=== PATIENT | male | born 1985 | race Caucasian/White ===

== ENCOUNTER 2025-05-05 20:25 | Day surgery (SDC) | payer BC, SELFPAY ==
[2025-05-05 16:46] VITALS: BP 146/88
[2025-05-05] MEDS: ZOFRAN 4 MG IV (17:31)
[2025-05-05] MEDS: DILAUDID 1 MG IV (17:31)
[2025-05-05 17:37] LABS: Hematocrit 44.3 % (39.0-52.0); Hemoglobin 15.1 g/dL (13.0-18.0); Mean Corp Hgb Conc. 34.1 g/dL (33.0-37.0); Mean Corpuscular Volume 86.5 fL (80.0-94.0); Nucleated Red Blood Cells % 0 % (-); Platelet Count 278 10^3/uL (130-400); Red Cell Dist. Width 12.3 % (11.5-14.5)
--- NOTE | 2025-05-05 17:40 | ED.GENMED ---
History of Present Illness
General
Chief Complaint: Abdominal Pain
Source: patient
Exam Limitations: none
Time Seen by Provider: 05/05/25 17:00
Nursing documentation reviewed up to this point in time: agreed with
History of Present Illness
History of Present Illness:
39-year-old male 1 day of abdominal pain right-sided no fever not much of an appetite pressure, no prior episodes no flank pain no dysuria or frequency no prior abdominal surgeries no sick contacts no testicular pain
Past History
Past History
ED Past Medical History: None
ED Past Surgical History: None
Social History
Tobacco: Non-smoker
Alcohol: None
Drug: None
Personal:
Living: with family
Employment: Employed
Review of Systems
Review of Systems
All Other Systems: Not applicable
Constitutional: Denies fever or fatigue
EENT: Reports no symptoms
Respiratory: Reports no symptoms
Cardiac: Denies chest pain
ABD/GI: Reports abdominal pain and anorexia
: Reports no symptoms
Musculoskeletal: Reports no symptoms
Phy Exam
Physical Exam
Physical Exam:
Physical Exam
General: no apparent distress, not acutely ill
Neck: No jaundice
Heart: s1/s2 regular rate and rhythm, no murmur. equal radial pulses.
Lungs: no acute respiratory distress. clear bilaterally
Abdomen: Tender in the right lower abdomen
Neuro: alert and oriented. no focal neurological deficits
Skin: no rash
Psychiatric: well kept. interactive and cooperative
Extremities: no edema.
Course
Orders/Labs/Results
Orders:
Orders
05/05/25 Dinner
Clear Liquid
At Your Request: Full Participation
NPO
Allow oral meds: Yes
Allow clear liquids: No
NPO with Ice Chips: No
05/05/25 17:17
CT Abd/Pel (IV only)-DH only Urgent
Comment:
Reason For Exam: rlq pain
HYDROmorphone [Dilaudid] 1 mg IV NOW STA
Ondansetron Injectable [Zofran] 4 mg IV NOW STA
05/05/25 17:28
Complete Blood Count/With Diff Urgent
Comprehensive Metabolic Panel Urgent
05/05/25 19:20
Urinalysis Reflex To Culture Urgent
Date Specimen was Collected: 05/05/25
Time Specimen was Collected: 19:18
Urine Microscopic Reflex Cult Urgent
05/05/25 19:38
Piperacillin/Tazo 3.375 Gram [Zosyn] 3.375 gram in 50 ml IV NOW
05/05/25 19:45
0.9% Sodium Chloride 1000 ml [Nss] 1,000 ml IV BOLUS
05/05/25 19:46
Admit/Transfer Patient As Directed
Co-Sign Provider:
Level of Care: Observation services
Assign to:: Medical/Surgical
Physician / Group: dr Muñoz
Diagnosis: acute appendicitis
PRN Pain Medication Management As Directed
May give lesser potent ordered pain med per pt: Yes
preference::
Protocol:: Medication orders for pain may be administered in a
manner that supports deferring to patient preference
when the pt is:
- Requesting an ordered lesser potent pain medication.
Least to most potent pain medications are defined
as: acetaminophen < NSAID < tramadol < opioids
(morphine, oxycodone, hydromorphone).
- Requesting a lesser dose of the same medication IF
ORDERED.
- Requesting a less intrusive route of administration
if both routes are prescribed by the provider (PO <
IV).
05/05/25 19:47
Code Status As Directed
Resuscitation Status: Full Code
05/05/25 20:56
0.9% Sodium Chloride 1000 ml [Nss] 1,000 ml IV 140 mls/hr
Acetaminophen [Tylenol] 650 mg PO Q4HPRN PRN
HYDROmorphone [Dilaudid] 0.5 mg IV Q2HPRN PRN
HYDROmorphone [Dilaudid] 1 mg IV Q2HPRN PRN
05/05/25 20:56
Activity As Directed
Activity Level: Out of Bed-Early Mobility
Anti-embolism (LORENA) Hose As Directed
Type: Thigh high
Intake/ Output As Directed
Frequency: Per unit guidelines
Pneumatic Compression Sleeves As Directed
Type: Thigh high
Vital Signs As Directed
Frequency: Per unit guidelines
Rx Incentive Spirometry [RESP] Routine
Frequency: q1h while awake
# of times per hour: 10
DX Deep Vein Thrombosis Video Routine
05/06/25 00:00
Ondansetron Injectable [Zofran] 4 mg IV Q6HPRN PRN
05/06/25 04:00
Piperacillin/Tazo 3.375 Gram [Zosyn] 3.375 gram in 50 ml IV Q6H
05/06/25 06:00
Basic Metabolic Panel IN AM
Complete Blood Count/With Diff IN AM
05/06/25 08:00
Pantoprazole [Protonix] 40 mg PO DAILY
Abnormal Lab Results
05/05/25 05/05/25
17:28 19:20
WBC 14.8 H 10^3/uL
(4.8-10.8)
Abs Immat Gran (auto) 0.1 H 10^3/uL
(0-0.05)
Absolute Neuts (auto) 11.6 H 10^3/uL
(1.4-6.5)
Absolute Monos (auto) 1.5 H 10^3/uL
(0.1-0.6)
Neutrophils % 78.4 H %
(42.2-75.2)
Lymphocytes % 10.5 L %
(20.5-51.1)
Monocytes % 10.1 H %
(1.7-9.3)
Glucose 118 H mg/dl
(70-99)
Total Bilirubin 1.6 H mg/dl
(0.2-1.3)
Ur Occult Blood Reflex 1+ A
(Negative)
Urine Bacteria (Reflex) Few A
(Negative)
Urine Albumin (Reflex) 1+ A
(Neg - Trace)
05/05/25 17:28
05/05/25 17:28
Vital Signs
Initial and Last Documented VS:
Initial Vital Signs
Temp Pulse Resp BP Pulse Ox
98.1 F 111 18 146/88 96
05/05/25 16:46 05/05/25 16:46 05/05/25 16:46 05/05/25 16:46 05/05/25 16:46
Last Documented Vital Signs
Temp Pulse Resp BP Pulse Ox
98.3 F 80 18 122/81 100
05/05/25 21:03 05/05/25 21:03 05/05/25 21:03 05/05/25 21:03 05/05/25 21:03
MDM/Problems Addressed
Differential Diagnosis Includes:
Appendicitis right side diverticulitis UTI nonspecific abdominal pain
MDM/Problems Addressed:
Abdominal
*Radiology
Radiology exam reviewed: radiology read reviewed
*Pulse Oximetry
SaO2: 96
Oxygen Mode of Delivery: Room air
Patient hypoxic: no
*Critical Care Note
Total Time (30-74mins, 75-104mins- exclusive of procedures): Not Applicable
Update Note
Update Note:
Update labs noted CT noted CT report noted message sent to on-call general surgeon will update patient
ED Attending Note
-
Portions of this chart may have been created with voice recognition software.� Occasional wrong word or��sound alike� substitutions may have occurred due to the inherent limitations of voice recognition software.
Discharge Plan
Departure
Patient Disposition: Admit
Date of Disposition: 05/05/25
Time of Disposition: 19:42
Admit to: Med/Surg
Admit to doctor: Bradly
Presentation/result/management discussed w/ accepting MD/DO: TREVOR
Patient with high blood pressure during this ER visit?: No
Condition: Good
Covid-19: Not Applicable
Discharge Problem:
Acute appendicitis
Interventions
Interventions:
*Risk Screen - Suicide Last Done: 05/05/25 21:11
*General Assessment Last Done: 05/05/25 18:48
*Neglect/Abuse Screening Last Done: 05/05/25 16:47
*ED COVID-19 Vaccine History Last Done: 05/05/25 21:11
*ED Influenza Vaccine History Last Done: 05/05/25 18:48
*Nursing Disposition Last Done: 05/05/25 20:57
PG-Zaakgz-Rataryjrtn Assessment Last Done: 05/05/25 18:48
Discharge Date and Time
Discharge Date/Time: 05/05/25 20:58
[2025-05-05 17:47] LABS: ALT (SGPT) 20 U/L (0-50); AST (SGOT) 18 U/L (17-59); Albumin 4.5 g/dl (3.5-5.0); Alkaline Phosphatase 49 U/L (38-126); Blood Urea Nitrogen 12 mg/dl (9-20); Calcium 9.6 mg/dl (8.4-10.2); Carbon Dioxide 26 mmol/L (22-30); Chloride 103 mmol/L (98-107); Glucose 118 mg/dl (70-99); Potassium 4.3 mmol/L (3.5-5.1); Sodium 137 mmol/L (135-145); Total Protein 7.2 g/dl (6.3-8.2); eGFR > 60.00
[2025-05-05 18:00] VITALS: BP 124/77
[2025-05-05 19:43] LABS: Urine Character Clear (Clear)
[2025-05-05 19:47] VITALS: BMI 31.0
[2025-05-05 19:53] LABS: Urine Red Blood Cell 0-2 /HPF (0-2); Urine Squamous Cell 0-2 /LPF (Few); Urine White Cell 0-2 /HPF (0-5)
[2025-05-05] MEDS: NSS 1000 IV ×2 (19:54→21:29)
[2025-05-05] MEDS: ZOSYN 50 IV (19:55)
--- NOTE | 2025-05-05 20:06 | HPS.HSE ---
Addendum entered and electronically signed by Gilbert Muñoz MD 05/06/25 07:27:
Patient seen and examined independently of admitting nurse practitioner. Agree with documented history and physical with additional details noted here.
HPI: 39-year-old male who developed acute onset of abdominal pain about 36 hours ago. It migrated and localized to the right lower quadrant. Some mild nausea but no vomiting. Associated anorexia. His bowels have been moving well last bowel
movement was this morning.
No significant active past medical history other than GERD.
Past surgical history of wisdom tooth extraction and endoscopy
AFVSS
NAD AAO x 3
ABD: soft, nondistended, tenderness to palpation localizing to the right lower quadrant with some voluntary guarding on deep palpation. No rebound or rigidity.
CT abdomen/pelvis personally reviewed and interpreted as well as radiologist report. Dilated/distended appendix measuring just over 1 cm. Associated inflammatory changes and wall thickening. No free fluid. No organized fluid collection. Mild
inflammation towards the base but no phlegmon extending into the cecum or terminal ileum.
Assessment/plan: 39-year-old male presenting with acute appendicitis.
Reviewed with patient treatment options including attempted nonoperative management/antibiotics versus appendectomy. We discussed the risks and benefits of both approaches and patient in agreement to proceed with appendectomy.
Laparoscopic appendectomy was reviewed in detail clued the operative technique, alternative treatment options, benefits and potential risks.
Any of the patient's concerns or questions were fully addressed and informed consent was obtained.
Patient is on the OR schedule today for appendectomy
Continue current supportive care pending availability of an OR
Zosyn
Original Note:
Family Physician
-
Family Physician:
Chief Complaint
-
abd pain
History of Present Illness
39-year-old male with only hx of GERD present to ED with 1 day of abdominal pain right-sided. Initially pain was diffuse. [place] crampy in nature. Did not measure temp- but he did feel feverish and hot with chills. Not much of an appetite. Nausea
without vomiting. No prior episodes no flank pain no dysuria or frequency no prior abdominal surgeries no sick contacts no testicular pain.
ED treatments:
WBC 14.8
[address] abd:IMPRESSION:
Acute appendicitis. No definite evidence to suggest perforation or abscess, though there is a prominent inflammatory reaction.
zosyn started
pain tolerable with dilaudid
Medical History
Past Medical History
Past Medical History: Reports None and GERD
Past Surgical History: Reports Other (wisdom teeth removal, endoscopies)
Social History
Tobacco: Non-smoker
Alcohol: Occasional
Drug: None
Personal:
Living: With Family
Employment: Employed
Family History
Family History: Not pertinent
Allergies / Home Medications
Allergies reflects when Allergies were last updated in [facility].
Home Medications with original date entered in [facility]
Allergy/Medication List:
Nexium ?mg po daily
Review of Systems
-
History Source: Patient and Family
A 12 point ROS was completed and negative except as noted: Yes
Constitutional: Reports Fever (not measured but he felt feverish) and Chills
EENT: Reports No Symptoms
Respiratory: Reports No Symptoms
Cardiac: Reports No Symptoms
Abdomen/GI: Reports Abdominal Pain, Nausea and Anorexia
: Reports No Symptoms
Musculoskeletal: Reports No Symptoms
Skin: Reports No Symptoms
Neurological: Reports No Symptoms
Endocrine: Reports No Symptoms
Hematologic/Lymphatic: Reports No Symptoms
Psych: Reports No Symptoms
Physical Exam
Vital Signs
Vital Signs
Temp Pulse Resp BP Pulse Ox
98.1 F 111 18 146/88 96
05/05/25 16:46 05/05/25 16:46 05/05/25 16:46 05/05/25 16:46 05/05/25 17:42
Physical Exam
General: Well Developed, Well Nourished, No Apparent Distress, Comfortable and Pain (12/14 after dilaudid. 'tolerable level')
HEENT: NormoCephalic, Moist mucous membranes and Atraumatic
Respiratory: Clear
Cardiac: S1/S2 and Regular Rhythm
GI: Soft, Normal Bowel Sounds, Tender (+tender rLQ to palpation and increase tender with movement) and Distended (mildly); No Non Distended
Rectal: Deferred by Provider
Musculoskeletal: No Clubbing and No Cyanosis
Skin: Warm and Dry
Neuro: Awake, Alert, Oriented, AO x 3 and No Motor Deficits
Psych: Calm
Laboratory Results
-
05/05/25 17:28
05/05/25 17:28
Laboratory Results
Total Bilirubin 1.6 mg/dl (0.2-1.3) H 05/05/25 17:28
AST 18 U/L (17-59) 05/05/25 17:28
ALT 20 U/L (0-50) 05/05/25 17:28
Alkaline Phosphatase 49 U/L (38-126) 05/05/25 17:28
Impression/Plan
-
IMPRESSION:
39 yo male present to ED with abd pain RLQ since last evening. [place] feverish and chills. +anorexia CT abd c/w acute appendicitis w/o perforation
PLAN:
Admit to service of Dr Muñoz
Med surg obs
#acute appendicitis
-npo x meds after midnight. Clear liquids ok for tonight.
-pain control: tylenol, dilaudid
-cont zosyn iv q6
-cbc bmp in am
-NSS @80
DVT proph: scd for now
Full code
--- NOTE | 2025-05-05 20:50 | PTCARENOTE ---
Pt arrived to [address] [place] [address] @ 2049 from ED. Pt ambulated to bed w/o difficulty. Pt AAOx3, VSS. Admission assessment complete. IVF initiated per order. Pt c/o 11/13 pain, prn medication given, see MAR. Reviewed plan of care with pt and spouse at beside, all
questions answered. Pt oriented to room, call esqueda within reach, bed locked and in lowest position. Care onoing.
[2025-05-05 21:03] VITALS: BP 122/81
[2025-05-05] MEDS: DILAUDID 0.5 MG IV (21:26)
[2025-05-05] MEDS: MELATONIN 5 MG PO (21:36)
[2025-05-05 21:41] VITALS: BMI 30.9
[2025-05-05 23:00] VITALS: BP 124/79
[2025-05-05] MEDS: TUMS CHEWABLE TABLET 400 MG PO (23:50)
[2025-05-06] VITALS (10 sets, daily range): BP systolic 115–148; BP diastolic 59–88
[2025-05-06] MEDS: ZOSYN 50 IV ×4 (03:01→21:25)
[2025-05-06] MEDS: NSS 1000 IV ×3 (04:02→23:18)
[2025-05-06 07:50] LABS: Blood Urea Nitrogen 11 mg/dl (9-20); Calcium 9.3 mg/dl (8.4-10.2); Carbon Dioxide 29 mmol/L (22-30); Chloride 101 mmol/L (98-107); Estimated Creatinine Clearance 111 ml/min; Glucose 96 mg/dl (70-99); Potassium 4.3 mmol/L (3.5-5.1); Sodium 135 mmol/L (135-145); eGFR > 60.00
[2025-05-06 08:12] LABS: Hematocrit 41.4 % (39.0-52.0); Hemoglobin 13.9 g/dL (13.0-18.0); Mean Corp Hgb Conc. 33.6 g/dL (33.0-37.0); Mean Corpuscular Volume 91.0 fL (80.0-94.0); Nucleated Red Blood Cells % 0 % (-); Platelet Count 248 10^3/uL (130-400); Red Cell Dist. Width 12.3 % (11.5-14.5)
[2025-05-06] MEDS: PROTONIX IV 40 MG IV (08:52)
[2025-05-06] MEDS: NSS (PRESERVATIVE FREE) 10 ML IV (08:52)
--- NOTE | 2025-05-06 13:42 | W.SUR.PREOP ---
Pre-Operative Surgical Note
-
I have examined this patient prior to the performance of the scheduled procedure.
The patient's condition is unchanged from the time of the current History and
Physical and the patient is able to undergo the scheduled procedure.
--- NOTE | 2025-05-06 14:19 | CM ---
Patient out of room when CM attempted to see patient. Will return to complete assessment
--- NOTE | 2025-05-06 15:51 | CM ---
Patient out of room to testing. CM called and spoke with patient . Patient lives with her in a 2 story home with no past need for VN or SNF. Patient has no DME at home. Patient is OBS and CM reviewed form with patient , copy left in room.
Patient PCP is Dr. Murdock and he uses the [facility] in [place]. Patient is here to visit patient. CM will follow for discharge planning needs.
Plan; home with no needs pending medical treatment plan
--- NOTE | 2025-05-06 15:57 | W.IMMPOSTOP ---
Addendum entered and electronically signed by Gilbert Muñoz MD 05/06/25 20:57:
#[id number]
Original Note:
Surgical Immed Post Op Note
-
Primary Surgeon: Gilbert Muñoz MD
Assisting Surgeon: Noel Villalobos
Arnel Wang NP
Pre-op Diagnosis: Acute appendicitis
Post-op Diagnosis: Acute appendicitis
Procedure Performed: Laparoscopic appendectomy with partial cecectomy (preservation of ileocecal valve)
Anesthesia Type: GETA +0.25% Marcaine
Specimen / Cultures: Appendix with portion of cecum
Estimated Blood Loss: 12 mL
Complications: None immediate
Operative Findings: Appendix completely walled off within an inflammatory peel and intimately adherent to the peritoneal surface of the right lower quadrant and inguinal area. Quite indurated with phlegmon but no perforation, no abscess, no
purulence.
Terminal ileum mobilized off peritoneal attachments to the right pelvic brim required for exposure. Cecum mobilized above the level of ileocecal valve. Base of the appendix with induration and inflammation but not extending into terminal
ileum/ileocecal valve. Appendectomy completed with cuff of the cecum. Endo AVERY purple 60/45 loads to complete appendectomy. Staple line at appendiceal orifice oversewn with 2-0 Vicryl stitch x 2 in a Lembert fashion. No impingement on ileocecal
valve with partial cecectomy.
[2025-05-06] MEDS: ZOFRAN 4 MG IV ×2 (16:42)
--- NOTE | 2025-05-06 17:14 | PTCARENOTE ---
Patient returned to his room from pacu post laparoscopic appendectomy with cecectomy.The patient is alert and oriented.He rateshis pain at a 4 out of 10.All 5 incisions are intact without drainage.Vital signs are stable.The patientis in his bed with
the call esqueda in reach.
[2025-05-06] MEDS: MELATONIN 5 MG PO (21:24)
[2025-05-06] MEDS: ROXICODONE 5 MG PO (22:49)
[2025-05-07 04:20] VITALS: BP 122/70
[2025-05-07] MEDS: ZOSYN 50 IV ×2 (04:21→10:46)
[2025-05-07 07:05] VITALS: BP 114/72
[2025-05-07] MEDS: NSS (PRESERVATIVE FREE) 10 ML IV (08:27)
[2025-05-07] MEDS: PROTONIX IV 40 MG IV (08:27)
[2025-05-07] MEDS: TORADOL 10 MG IV (08:35)
[2025-05-07] MEDS: NSS IV (09:58)
--- NOTE | 2025-05-07 10:28 | W.PN.GS2 ---
Addendum entered and electronically signed by Benny Nicole MD 05/07/25 10:47:
Patient seen and examined.
No complaints. Mild discomfort. No nausea or vomiting. No flatus or BM. Afebrile.
Gen: NAD
Abd: soft, mild tenderness, minimal distension, non-peritoneal, incisions c/d/i - no erythema, ecchymosis or drainage
Patient is a 39 yo M presenting acute appendicitis
now POD #1 lap appi with partial cecectomy (ileocecal valve preserved)
AFVSS
Tolerating clears
Minimal post op discomfort
Plan:
-- Trial regular diet
-- Pain control: Tylenol, Toradol, Oxycodone
-- OOB/Ambulate
-- D/C IVF
-- No further abx upon d/c
-- Anticipate discharge later today if tolerating diet
Original Note:
Today's Communication / Plan
-
Advance diet, dipso planning
Assessment / Plan
-
39 yo male presenting acute appendicitis now POD #1 lap appi with partial cecectomy (ileocecal valve preserved)
AFVSS
Tolerating clears
Minimal post op discomfort
Plan:
Advance to regular diet
Analgesics prn
OOB/Ambulate
D/C IVF
No further abx upon d/c
Anticipate discharge later today if tolerating diet
Subjective Data
-
Date of Service: May 07, 2025
Pt seen and examined at bedside with Dr. Nicole. Denies n/v. Not yet passing flatus/stools. Not much abdominal discomfort. Tolerating clears.
Objective Data
-
Intake and Output
05/06/25 05/07/25 05/08/25
06:59 06:59 05:59
Intake Total 1610 / 1610 3840 / 3840
Output Total 1225 / 1225
Balance 1610 / 1610 2615 / 2615
Intake:
Oral fluids 720 / 720 960 / 960
IV fluids (Total) 840 / 840 2730 / 2730
Normosal 150 / 150
IV piggybacks 50 / 50 150 / 150
Output:
Urine, Voided 1225 / 1225
Other:
Number of approximated MODERATE 3 3
amounts of urine
Vital Signs
Temp Pulse Resp BP Pulse Ox
98 F 60 16 114/72 98
05/07/25 07:05 05/07/25 07:05 05/07/25 07:05 05/07/25 07:05 05/07/25 07:05
Lab Results
05/06/25 06:40
05/06/25 06:40
Calcium 9.3 mg/dl (8.4-10.2) 05/06/25 06:40
Total Bilirubin 1.6 mg/dl (0.2-1.3) H 05/05/25 17:28
AST 18 U/L (17-59) 05/05/25 17:28
ALT 20 U/L (0-50) 05/05/25 17:28
Alkaline Phosphatase 49 U/L (38-126) 05/05/25 17:28
Total Protein 7.2 g/dl (6.3-8.2) 05/05/25 17:28
Albumin 4.5 g/dl (3.5-5.0) 05/05/25 17:28
Physical Exam
-
NAD
ABD soft, mild tenderness at incisions, nd
Incisions well approximated, intact glue
[2025-05-07 11:00] VITALS: BP 137/69
--- NOTE | 2025-05-07 13:38 | W.DS.TRANS ---
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
-
Discharge Instructions:
Discharge Diagnosis/Procedures Acute appendicitis. Laparoscopic appendectomy.
Diet As tolerated
Additional Diets Eat small meals at first as bloating is common
Activity No strenuous activity
Additional Activity Do not lift over 20lbs for the next 2-3 weeks
Driving Restrictions No driving for 72 hours
Bathing Restrictions OK to Shower
Wound Care Allow the glue to flake off your incisions on
its own over the next 1-2 weeks. Avoid picking
or scrubbing off the glue.
Ok to shower 24hours after your procedure.
Gently wash abdomen with soap and water, pat dry
. Do not apply lotions or creams.
Instructions:
Stand-Alone Forms:
Changes to Home Medications: No
Discharge Medications:
DC Medications w/original date entered in [facility]
acetaminophen 325 mg tablet 650 mg (2 x 325 mg) PO Q4HPRN PRN mild pain #1 tab 05/07/25
ibuprofen 200 mg tablet 400 - 600 mg (2 - 3 x 200 mg) PO Q6HPRN PRN moderate pain #1 tab 05/07/25
oxycodone 5 mg tablet 5 mg PO Q4HPRN PRN breakthrough/severe pain #5 tabs 05/07/25
Home Medication Changes
Pending Results: No
== END 2025-05-07 14:15 | disposition home or self-care (01) ==
LOC: SDS 20:25
PROVIDERS: Nurse Practitioner Family; ATTENDING PHYSICIAN Surgery; EMERGENCY PHYSICIAN Emergency Medicine; FAMILY PHYSICIAN Family Medicine
DX: K35.32 Acute appendicitis with perforation, localized peritonitis, and gangrene, without abscess (principal); K36 Other appendicitis; K35.80 Unspecified acute appendicitis
CPT/HCPCS: 44970; 74177; 80048; 80053; 81003; 81015; 85025; 88304; 88312; 90656; 96374; 96375; 99285; G0008; Q9967